=== PATIENT | male | born 1995 | race American Indian/Alaskan Native ===

== ENCOUNTER 2023-02-12 13:05 | Emergency (ER) | payer MEDICAID, SELFPAY ==
[2023-02-12 13:13] VITALS: BP 170/106; PULSE 116; RESP 18; TEMP 36.4; O2SAT 98; BMI 31.2
[2023-02-12 14:51] LABS: Ethanol* 0.04 % (0.01-0.03)
[2023-02-12 14:52] LABS: Acetaminophen* < 10.0 ug/mL (10.0-30.0); Salicylate* < 1.0 mg/dL (1.0-10)
[2023-02-12 15:00] LABS: Amphetamine Screen Urine Negative (Negative); Barbiturate Screen Urine Negative (Negative); Benzodiazepines Screen Urine Negative (Negative); Cannabinoid Screen Urine Negative (Negative); Cocaine Screen Urine Negative (Negative); Methadone Screen Urine Negative (Negative); Methamphetamines Screen Urine Negative (Negative); Opiate Screen Urine Negative (Negative); Oxycodone Screen Urine Negative (Negative); Phencyclidine Screen Urine Negative (Negative); Tricyclic Antidepressant Urine Negative (Negative)
[2023-02-12 15:08] VITALS: BP 160/101; PULSE 88; O2SAT 95
--- NOTE | 2023-02-12 15:13 | ED.NURSE ---
[facility] contacted to roll picker patient from ER.
--- NOTE | 2023-02-12 15:14 | ED.GENADULT ---
HPI - General Adult General Chief complaint: Unspecified Complaint, Adult Stated complaint: Withdrawal Time Seen by Provider: 02/12/23 13:59 Source: patient Mode of arrival: ambulatory Limitations: no limitations History of Present Illness HPI narrative: 27-year-old male brought in at the request of [facility], for concerns about withdrawal. Patient states that his last alcohol consumption was last night. He denies any seizures, hallucinations or other problems when he withdrawals from alcohol. States he has never had been been hospitalized for withdrawals in the past. He states that he feels dehydrated otherwise he feels fine. Your upon arrival patient is very nervous. Blood pressure is elevated at 170/106 and his pulse is 116. Patient does tell me that he has a history of anxiety and elevated blood pressures. He states he has never been on treatment for elevated blood pressures in the past. The patient has a long history of alcohol use disorder. He denies any other drug use. Related Data Home Medications Medication Instructions Recorded Confirmed No Known Home Medications 02/12/23 02/12/23 Allergies Allergy/AdvReac Type Severity Reaction Status Date / Time No Known Drug Allergies Allergy Verified 02/12/23 13:15 Review of Systems Status of ROS: Reports: 10 or more systems reviewed and unremarkable except as noted in History and below Exam Narrative: Exam Narrative: Well-nourished well-developed patient, is a little anxious. He is not tremulous or diaphoretic. Alert and oriented x3. Answers questions appropriately. Mood and affect are appropriate. Thoughts are goal oriented and rational. No tangential or magical thinking noted. Patient speaks in full sentences without needing to catch his breath. HEENT: Normocephalic atraumatic. Pupils are equally round reactive to light. Extraocular muscles are intact. Conjunctivae are moist without any icterus noted. Moist mucous membranes. Posterior pharynx is normal. Neck is soft without any lymphadenopathy or thyromegaly. No masses are appreciated. Cardiovascular: Heart is regular rate and rhythm S1 and S2 are present without any murmurs. He is not tachycardic when I do his physical examination. Lungs: Clear to auscultation bilaterally no wheezes rhonchi or rales are appreciated. Patient takes deep breaths without any discomfort. Abdomen: Soft and nontender nondistended with normal bowel sounds. No guarding or rebound. No masses or organomegaly appreciated. Extremities: Bilateral lower extremities are without edema. Normal DP and PT pulses. Skin: Well perfused. Const: Vital Signs, click to edit/add: Vital Signs - 24 hr 02/12/23 13:13 02/12/23 15:08 Temperature 97.6 F Pulse Rate [Right Pulse Oximeter] 116 H 88 Respiratory Rate 18 Blood Pressure [Ri ght Upper Arm] 170/106 H 160/101 H Pulse Oximetry 98 95 Oxygen Delivery Me thod Room Air Room Air Course Course ED Course: Blood alcohol is elevated at 0.04, consistent with alcohol consumption the night before. Urine drug screen is negative. Vital Signs Vital signs: Initial Vital Signs Temperature 97.6 F 02/12/23 13:13 Temperature Source Temporal Artery Scan 02/12/23 13:13 Pulse Rate 116 H 02/12/23 13:13 Respiratory Rate 18 02/12/23 13:13 Blood Pressure 170/106 H 02/12/23 13:13 Blood Pressure Mean 127 H 02/12/23 13:13 Blood Pressure Position Sitting 02/12/23 13:13 Pulse Oximetry 98 02/12/23 13:13 Oxygen Delivery Method Room Air 02/12/23 13:13 Vital Signs Temperature 97.6 F 02/12/23 13:13 Pulse Rate 116 H 02/12/23 13:13 Respiratory Rate 18 02/12/23 13:13 Blood Pressure 170/106 H 02/12/23 13:13 Pulse Oximetry 98 02/12/23 13:13 Oxygen Delivery Method Room Air 02/12/23 13:13 Temperature 97.6 F 02/12/23 13:13 Pulse Rate 88 02/12/23 15:08 Respiratory Rate 18 02/12/23 13:13 Blood Pressure 160/101 H 02/12/23 15:08 Pulse Oximetry 95 02/12/23 15:08 Oxygen Delivery Method Room Air 02/12/23 15:08 Medical Decision Making MDM Narrative Medical decision making narrative: 27-year-old male with alcohol use disorder. The last alcoholic beverage was last night. Patient is currently detoxing from alcohol use. However, given no history of a seizure disorder or delirium tremens in the past, I do think it is safe for him to return to the recovery center at this time and proceed with treatment. Lab Data Lab results reviewed: Yes I reviewed the patient's lab results Labs: Lab Results 02/12/23 02/12/23 Range/Units 14:22 14:40 Salicylates < 1.0 L (1.0-10) mg/dL Urine Opiates Screen Negative (Negative) Ur Oxycodone Screen Negative (Negative) Urine Methadone Screen Negative (Negative) Acetaminophen < 10.0 L (10.0-30.0) ug/mL Ur Barbiturates Screen Negative (Negative) U Tricyclic Antidepress Negative (Negative) Ur Phencyclidine Scrn Negative (Negative) Ur Amphetamines Screen Negative (Negative) U Methamphetamines Scrn Negative (Negative) U Benzodiazepines Scrn Negative (Negative) Urine Cocaine Screen Negative (Negative) U Marijuana (THC) Screen Negative (Negative) Ur Drug Screen Comment See Note Ethyl Alcohol 0.04 H (0.01-0.03) % Discharge Plan Discharge Clinical Impression: Alcohol use disorder Patient Disposition: Home, Self-Care Condition: Stable Prescriptions: No Action No Known Home Medications Follow Up/Referrals: Provider,Not a Local [Primary Care Provider] - Stand Alone Forms: [employer] Info Instructions
== END 2023-02-12 15:23 | disposition home or self-care (01) ==
PROVIDERS: Emergency Provider Family Medicine
DX: F10.90 Alcohol use, unspecified, uncomplicated (principal)
CPT/HCPCS: 36415; 80143; 80179; 80306; 82077; 99283; 99284